=== PATIENT | male | born 1960 ===

== ENCOUNTER 2018-10-09 13:36 | Emergency (ER) | payer SELFPAY ==
[~2018-10-09] VITALS: Ht 167.6 cm; Wt 61.4 kg
[2018-10-09 13:45] VITALS: Ht 167.6 cm; Wt 61.4 kg
[2018-10-09] MEDS ORDERED: CLEOCIN HCL300 MG PO (14:15)
[2018-10-09] MEDS ORDERED: TORADOL10 MG PO (14:15)
[2018-10-09 14:53] VITALS: BP 136/70
== END 2018-10-09 14:53 | disposition home or self-care (01) ==
LOC: D.ER 13:36
DX: M79.675 Pain in left toe(s) (principal); S92.532A Displaced fracture of distal phalanx of left lesser toe(s), initial encounter for closed fracture; X58.XXXA Exposure to other specified factors, initial encounter; Y93.89 Activity, other specified; Y92.019 Unspecified place in single-family (private) house as the place of occurrence of the external cause; F17.200 Nicotine dependence, unspecified, uncomplicated; I10 Essential (primary) hypertension